=== PATIENT | female | born 1990 | race Asian ===

== ENCOUNTER 2020-01-19 23:21 | Emergency (ER) | payer OTHER ==
--- NOTE | 2020-01-19 23:45 | ED ---
HPI Febrile Illness - HPI Summary HPI Summary: This pt is a 29 Y/O F presenting to [facility] with a CC of a fever that had a maximum temperature of 103 F. She states that she began to feel poorly this afternoon and took a nap. Afterwards she woke up and took her temperature which was 103 F. She states that she has a mild headache as well. She denies any cough , SOB, CP, and sore throat. She has no aggravating or alleviating factors. She has no pertinent PMHx. - History of Current Complaint Chief Complaint: EDFever Time Seen by Provider: 01/19/20 23:32 Hx Obtained From: Patient Onset/Duration: Started Hours Ago, Still Present Timing: Constant Temperature: 39.4 C Pain Scale Used: 0-10 Numeric Aggravating Factors: Nothing Alleviating Factors: Nothing Associated Signs and Symptoms: Negative - cough, SOB, CP, and sore throat, Headache PMH/Surg Hx/FS Hx/Imm Hx Previously Healthy: Yes Endocrine/Hematology History: Denies: Hx Diabetes Cardiovascular History: Denies: Hx Embolism Respiratory History: Denies: Hx Asthma, Hx Chronic Obstructive Pulmonary Disease (COPD) - Cancer History Hx Chemotherapy: No Hx Radiation Therapy: No - Surgical History Surgical History: None - Immunization History Immunizations Up to Date: Yes - Family History Known Family History: Negative: Hypertension, Diabetes - Social History Occupation: Employed Full-time Lives: With Family Alcohol Use: None Hx Substance Use: No Substance Use Type: Reports: None Hx Tobacco Use: No Smoking Status (MU): Never Smoked Tobacco Review of Systems Positive: Fever - 103 F Negative: Sore Throat Negative: Chest Pain Negative: Shortness Of Breath, Cough Positive: Headache All Other Systems Reviewed And Are Negative: Yes Physical Exam - Summary Physical Exam Summary: Appearance: Well-appearing, Well-nourished, lying in bed comfortably Skin: Warm, dry, no obvious rash Eyes: sclera anicteric, no conjunctival pallor ENT: mucous membranes moist, pharynx appears normal Neck: Supple, nontender Respiratory: Clear to auscultation, no signs of respiratory distress Cardiovascular: Normal S1, S2. No murmurs. Normal distal pulses in tibial and radial bilaterally. Abdomen: Soft, nontender, normal active bowel sounds present Musculoskeletal: Normal, Strength/ROM Intact Neurological: A&Ox3, awake and alert, mentation is normal, speech is fluent and appropriate Psychiatric: affect is normal, does not appear anxious or depressed Triage Information Reviewed: Yes Vital Signs On Initial Exam: Temp Pulse Resp BP SpO2 FiO2 Vital Signs Reviewed: Yes Procedures - Sedation Patient Received Moderate/Deep Sedation with Procedure: No Course/Dx - Course Course Of Treatment: This pt is a 29 Y/O F presenting to [facility] with a CC of a fever that had a maximum temperature of 103 F. She states that she began to feel poorly this afternoon and took a nap. Afterwards she woke up and took her temperature which was 103 F. She states that she has a mild headache as well. Her PE found no acute abnormalities. she will be discharged home after receiving influenza A and B swabs along with a CoVID-19 swab. - Diagnoses Provider Diagnoses: Fever, Suspected COVID-19 virus infection - Critical Care Time Critical Care Statement: Critical care time is provided exclusive of any time spent performing procedures. Discharge ED - Sign-Out/Discharge Documenting (check all that apply): Patient Departure - discharge - Discharge Plan Condition: Good Disposition: HOME Patient Education Materials: Fever in Adults (ED) Forms: COVID-19 Tested & Isolation Referrals: [facility] [Outside] [facility] [facility] [Outside] Additional Instructions: PLEASE FOLLOW UP WITH [facility] TO HELP FIND A PRIMARY CARE PHYSICIAN. - Billing Disposition and Condition Condition: GOOD Disposition: Home - Attestation Statements Document Initiated by Maryjo: Yes Documenting Scribe: Logan Priest Provider For Whom Maryjo is Documenting (Include Credential): Lion Rangel MD Scribe Attestation: Logan Watkins scribed for Lion Rangel MD on 01/20/20 at 0332. Scribe Documentation Reviewed: Yes Provider Attestation: The documentation as recorded by the Logan hernandez accurately reflects the service I personally performed and the decisions made by me, Lion Rangel MD Status of Scribe Document: Viewed
[2020-01-20 00:21] VITALS: BP 105/78
[2020-01-20 00:55] LABS: Influenza A Molecular Negative (Negative); Influenza B Molecular Negative (Negative)
== END 2020-01-20 00:25 | disposition home or self-care (01) ==
LOC: ED 23:21
DX: R50.9 Fever, unspecified (principal); R51 Headache; Z20.828 Contact with and (suspected) exposure to other viral communicable diseases
CPT/HCPCS: 87635; 99282